=== PATIENT | female | born 1990 | race Hispanic/Latino ===

== ENCOUNTER 2019-03-20 05:08 | Inpatient (IN) | payer OTHER, SELFPAY ==
[2019-03-20] MEDS ORDERED: CARBOPROST TROME 250 MCG/ML IM PRN (05:10)
[2019-03-20] MEDS ORDERED: BUTORPHANOL 1 MG/ML INJ IV PRN (05:10)
[2019-03-20] MEDS ORDERED: PROMETHAZINE 25 MG/ML VIAL IM PRN (05:10)
[2019-03-20] MEDS ORDERED: MEPERIDINE HCL 25 MG/0.5 ML IV PRN (05:10)
[2019-03-20] MEDS ORDERED: MIDAZOLAM HCL 2 MG/2 ML INJ IV PRN (05:10)
[2019-03-20] MEDS ORDERED: METHYLERGONOVINE 0.2MG/ML AMP IM PRN (05:10)
[2019-03-20] MEDS ORDERED: Ringers Lactate 1,000 ML IV PRN (05:10)
--- OUTSIDE RECORDS SUMMARY | 2019-03-20 05:11 | XMS REPORT ---
:1990 [facility] [address] [place] [address] Dr. Lundberg [address] [place] [id number] Care Team Providers Name Role Phone Unavailable Unavailable Unavailable Problems This patient has no known problems. Allergies, Adverse Reactions, Alerts This patient has no known allergies or adverse reactions. Medications This patient has no known medications.
[2019-03-20] MEDS ORDERED: LIDOCAINE 1% MPF 30 ML VIAL SQ ONE (05:13)
[2019-03-20] MEDS ORDERED: OXYTOCIN 10 UNIT/ML ML IV ONE (05:31)
[2019-03-20] MEDS ORDERED: Ringers Lactate 1,000 ML IV SCH (06:00)
[2019-03-20] MEDS ORDERED: OXYTOCIN/LR 20 UNIT/1,000 ML BAG IV SCH ×2 (06:00→12:00)
[2019-03-20 06:06] VITALS: BMI 23.7
[2019-03-20 06:17] LABS: Absolute Lymphocytes (CBC) 2.9 K/uL (0.7-4.9); Basophils % 0.6 % (0-1.3); Hematocrit 36.4 % (36.0-45.0); MPV 10.3 fL (7.6-11.3); RBC Red Blood Cell Count 4.23 M/uL (3.86-4.86)
[2019-03-20] MEDS ORDERED: FENTANYL CITR 100 MCG/2 ML IV ONE (07:15)
[2019-03-20] MEDS ORDERED: BUPIVACAINE 0.25% PF 10 ML VIAL IV ONE (07:17)
[2019-03-20] MEDS ORDERED: FENTANYL/BUPIVACAINE/NS/PF 200 MCG/100 ML BAG EP ONE (07:17)
--- NOTE | 2019-03-20 11:46 | OP ---
Surgeon: Figueroa Kim MD This is a 28-year-old 3, para 1, 35 weeks 6 days, came in with spontaneous rupture of membran es, and active labor, 4 cm on admission. Requested and received epidural anesthesia at about 8-9 cm. Second stage of about 20-25 minutes. Spontaneous vaginal delivery of an estimated 5 pound male inf ant, Apgars 3, 5, 8. 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 Was initially very sluggish but then did respond to bagging with ox ygen. Schultze delivery of the placenta. Estimated blood loss 300 mL or less. Penicillin prophylax is given x1 as the patient was less than 37 weeks, although beta strep test was negative. Patient to lerated all procedures well. Final Diagnoses: Intrauterine gestation, 35 weeks 6 days, premature rupture of membranes, vaginal de livery, epidural anesthesia. Baby with multiple external deformities. Pediatrics of course will be notified for a complete evaluation. DOUG/KRYS Voice ID: [id number] Report ID: [id number]
--- NOTE | 2019-03-20 11:46 | PREOPHP ---
Date of Admission: 03/20/2019 Katherine Ray is a 28-year-old, 3, para 1, 35 weeks 6 days. Rh positive, immu ne to Rubella, negative beta strep screen. Patient is under 37 weeks. Came in with spontaneous rupt ure of membranes and active labor. Patient is now 5-6, 100% effaced, 0 station. Luis A every m inute. She is requesting epidural. She is being hydrated. Her CBC is back and is normal remains to be same. She knows because she has a male infant he may have trouble after de livery with his lungs, but that remains to be same. Full admission and labor talk given. DOUG/KRYS Voice ID: [id number]
[2019-03-20] MEDS ORDERED: Oxycodone HCl/Acetaminophen 1 TAB TAB PO PRN ×2 (11:52)
[2019-03-20] MEDS ORDERED: IBUPROFEN 200 MG TAB PO PRN (11:52)
[2019-03-20] MEDS ORDERED: BISACODYL 10 MG RECTAL SUPP RECT PRN (11:52)
[2019-03-20] MEDS ORDERED: ACETAMINOPHEN 500 MG TAB PO PRN (11:52)
[2019-03-20] MEDS ORDERED: DOCUSATE NA/SENNA CONC 1 TAB PO PRN (11:52)
[2019-03-20] MEDS ORDERED: DIPHENHYDRAMINE 25 MG TAB/CAP PO PRN (11:52)
[2019-03-20 21:01] LABS: RPR (Rapid Plasma Reagin) NON-REACT (NON-REACT)
[2019-03-21 07:55] VITALS: BP 118/72; TEMP 97.2
--- NOTE | 2019-03-22 08:27 | DS ---
Date of Discharge: 03/21/2019 A 28-year-old 3, para 1, 35 weeks 6 days, experienced spontaneous rupture of membranes, came in in active labor. Went fairly rapidly to complete. Short second stage. Spontaneous vaginal deliv gema of an estimated 5 pound plus male infant. Apgars 3, 5, and 8. Baby had extra toes, hypospadias, malformed left ear, initially cried, but then went into secondary apnea, but resuscitation brought a bout good response. No episiotomy, no laceration. Schultze delivery of the placenta. Less than 300 mL blood loss. Penicillin prophylaxis had been given as patient was less than 37 weeks, but had a n egative beta strep screen. Baby was transferred to tertiary care center and is doing quite well at t his point. Whether or not the baby has a syndrome or just superficial defects remains to be se en. Patient has had her Tdap shot during the . Dismissed with tramadol for analgesia, alth ough she may elect to take Motrin instead. Final Diagnoses: Intrauterine gestation, 35 weeks 6 days, spontaneous rupture of membranes, prematur e labor and delivery. Baby with multiple defects. Penicillin prophylaxis. NBC/MODL Voice ID: [id number] Report ID: [id number]
[2019-03-22 19:16] LABS: HBsAG Nonreactive (Nonreactive)
== END 2019-03-21 08:40 | disposition home or self-care (01) | DRG 807 ==
LOC: 2ND-WC 05:08
PROVIDERS: ADMIT Specialist; ATTEND Specialist
PROC: 10E0XZZ Delivery of Products of Conception, External Approach (ICD-10-PCS; principal; 2019-03-20)
DX: O60.14X0 Preterm labor third trimester with preterm delivery third trimester, not applicable or unspecified (principal); Z37.0 Single live birth; Z3A.35 35 weeks gestation of pregnancy
CPT/HCPCS: 36415; 85025; 86592; 86850; 86900; 86901; 87340; 88307; J2210; J2590; J3010

== ENCOUNTER 2022-07-10 08:59 | Inpatient (IN) | payer OTHER ==
--- NOTE | 2022-07-10 11:16 | RAD REPORT ---
EXAM DESCRIPTION: US - OB Limited - 07/10/2022 9:46 am CLINICAL HISTORY: [place] check age. COMPARISON: OB Limited dated 07/07/2022 FINDINGS: A single cephalic presenting gestation is identified. Heart rate normal. The amniotic fluid index is 5.0 cm, with largest pocket 2.5 cm. IMPRESSION: Amniotic fluid index is5.0 cm, with largest pocket2.5 cm -- considered oligohydramnios..
--- OUTSIDE RECORDS SUMMARY | 2022-07-10 11:37 | XMS REPORT | Continuity of Care Document ---
:1990 Author Organization [facility] Address [address] [place] [address] Dr. Lundberg [address] [place] [address] Care Team Providers Name Role Phone Unavailable Unavailable Unavailable Problems This patient has no known problems. Allergies, Adverse Reactions, Alerts This patient has no known allergies or adverse reactions. Medications This patient has no known medications. Procedures This patient has no known procedures. Results This patient has no known results.
[2022-07-10] MEDS ORDERED: CARBOPROST TROME 250 MCG/ML IM PRN ×2 (11:41→19:03)
[2022-07-10] MEDS ORDERED: BUTORPHANOL 1 MG/ML INJ IV PRN (11:41)
[2022-07-10] MEDS ORDERED: PROMETHAZINE INJ 25 MG/ML AMP IM PRN (11:41)
[2022-07-10] MEDS ORDERED: Ringers Lactate 1,000 ML IV PRN (11:41)
[2022-07-10] MEDS ORDERED: METHYLERGONOVINE 0.2MG/ML AMP IM PRN (11:41)
[2022-07-10] MEDS ORDERED: OXYTOCIN/LR 20 UNIT/1,000 ML BAG IV SCH ×3 (12:00→20:00)
[2022-07-10] MEDS ORDERED: Ringers Lactate 1,000 ML IV SCH (12:00)
[2022-07-10 12:17] LABS: Hematocrit 39.2 % (36.0-45.0); Lymphocytes % 18.4 % (15.3-44.8); MCV 85.7 fL (80-100); RBC Red Blood Cell Count 4.58 M/uL (3.86-4.86)
[2022-07-10 12:21] LABS: Specific Gravity 1.013 (1.005-1.030); Urine Bilirubin NEGATIVE (Negative); Urine Blood Negative (Negative); Urine Clarity Clear (Clear); Urine Color Yellow (Yellow); Urine Glucose NEGATIVE (Negative); Urine Protein NEGATIVE (Negative); Urine Urobilinogen Normal (Normal); Urine pH 6.5 (5.0-7.0)
[2022-07-10] MEDS ORDERED: FENTANYL CITR 100 MCG/2 ML IV ONE (15:41)
[2022-07-10] MEDS ORDERED: 0.2% ROPIVACAINE (200 MG/100 ML) BAG EP ONE (15:42)
[2022-07-10] MEDS ORDERED: FENTANYL CITR 100 MCG/2 ML ONE (15:56)
[2022-07-10] MEDS ORDERED: ROPIVACAINE HCL 100 ML EP ONE (15:56)
[2022-07-10] MEDS ORDERED: ROPIVACAINE HCL 0 ML ONE (15:57)
[2022-07-10 16:23] VITALS: BMI 24.7
[2022-07-10] MEDS ORDERED: LIDOCAINE 1% MPF 30 ML VIAL ONE (17:14)
[2022-07-10 19:48] LABS: RPR (Rapid Plasma Reagin) REACTIVE (NON-REACT)
[2022-07-10] MEDS: Oxycodone HCl/Acetaminophen 1 TAB TAB PO PRN (22:24)
[2022-07-11] MEDS: IBUPROFEN 200 MG TAB PO PRN (01:35)
--- NOTE | 2022-07-11 02:39 | DN ---
Date of Procedure: 07/10/2022 Surgeon: Jarocho Crane Final Diagnoses: 1.Intrauterine at 38 weeks and 1 day of gestation, delivered. 2.Oligohydramnios. 3.Normal vaginal delivery. 4.Single live . Hospital Course: Katherine Chavira is admitted in the hospital as a G4, P2 at 38 weeks and 1 day gesta tion with diagnosis of oligohydramnios. Lengthy bedside discussion on planning of induction of labor involving artificial rupture of membranes and Pitocin usage were all discussed at the bedside and pablo arizmendi understood. She underwent artificial rupture of membranes at 12:40 p.m. showing clear fluid. The cervix was about 2-3 cm dilated, 25% effaced, -2 station. Pitocin was given and Pitocin was titr ated to regular contractions about every 3 minutes apart. She received epidural regional anesthesia and she was comfortable. Her labor progressed. Stable maternal unit. She reached complete ce rvical dilation during the afternoon and during the second stage of labor, her legs were placed up on the stirrups and vaginal area prepped and washed by using diluted Betadine prep. Then she was drape d in sterile fashion. Baby is about +1 station with maternal pushes. The baby's head was able to de scend and finally control was counter traction on the perineum. The baby's nose and mouth were bulb suctioned followed by reduction of a tight nuchal cord overhead. The left shoulder delivered. Baby presented CHATO. After the anterior shoulder delivery, followed by the posterior shoulder, body delive ry finally completed. The baby's nose and mouth suctioned again, followed by clamping of the cord an d cut and baby passed on to the nursing staff. Cord blood obtained. Placenta delivered manually in Schultze presentation. There was no episiotomy. There were no tears and aggressive fundal massage w as done. Excess blood clots were cleaned out. Estimated blood loss was 200 cc. She gave to a female baby, scores 7 and 9 and weight 7 pounds 1 ounce. Delivery time was 5:25 p.m. Sponge c ounts were correct. BW/MODL Voice ID: [id number] Report ID: [id number]
[2022-07-11] MEDS: Oxycodone HCl/Acetaminophen 1 TAB TAB PO PRN ×3 (07:05→19:09)
--- NOTE | 2022-07-11 13:29 | DS ---
Date of Discharge: 07/11/2022 Discharge Diagnoses: 1.Intrauterine , 38 weeks and 1 day of gestation, delivered. 2.Normal vaginal delivery. 3.Oligohydramnios. 4.Single live . Disposition: Home. Condition: Stable. Prescriptions: 1.Tylenol No. 3 #20 one to two tablets p.o. q.4 to 6 hours p.r.n. for pain with 1 refill. 2.Ibuprofen 800 mg #20 one tablet p.o. t.i.d. with food p.r.n. for pain. Followup: Contact Dr. Kim in 4 to 6 weeks followup. Hospital Course: Katherine is a multiparous female with amniotic fluid index has decreasing th roughout the past weeks. She finally reached oligohydramnios level, therefore, induction of labor wa s done for reasons. She underwent an artificial rupture of membrane, Pitocin infusion, and her labor progressed without any difficulties. She gave to a female baby with scores of 7 a nd 9. Weight 7 pounds 1 ounce. Her care was uneventful and unremarkable. The next day, her uterus was firm, vaginal lochia was minimum, and she was discharged to home. Bedside education c onducted. The patient understood the care issues. Her GBS status was negative. Maternal blood type is O positive with rubella immune. BW/MODL Voice ID: [id number] Report ID: [id number]
[2022-07-11] MEDS ORDERED: PROMETHAZINE INJ 25 MG/ML AMP IM ONE (18:42)
[2022-07-11] MEDS ORDERED: MEPERIDINE HCL 25 MG/ML SYR IM ONE (18:42)
[2022-07-12] MEDS: Oxycodone HCl/Acetaminophen 1 TAB TAB PO PRN (00:47)
[2022-07-12 05:21] VITALS: TEMP 97.7
[2022-07-12] MEDS ORDERED: IBUPROFEN 600 MG TAB ONE (09:04)
[2022-07-12] MEDS: IBUPROFEN 200 MG TAB PO PRN (11:06)
[2022-07-12 11:38] VITALS: BP 107/73
--- NOTE | 2022-07-12 19:07 | DS ---
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 Confirmation of FTA testing was not available yet and the results will not be ready in few days. However, the commercial sheet metal foreman was notified and I also conducted patient education at the bedside. The patient has no knowledge of any syphilis or anything related to a rash, infecti on, or any sexually transmitted infections. The patient denies any prior history. I educated the pablo arizmendi and told her that this could be a false alarm and we need to wait for an official confirmation test. The commercial sheet metal foreman had decided to treat the baby with penicillin because of the need for further observation and examination of the baby. Mom stayed with the baby in the hospital until this mornin g. Discharge to resume with the previously mentioned instructions. However, the pattern of 3 prescr iption was canceled. I gave her a new prescription of ibuprofen 800 mg #20, 1 tab p.o. t.i.d. p.r.n. for pain with 1 refill. JUAN/KRYS Voice ID: [id number] Report ID: [id number]
== END 2022-07-12 12:15 | disposition home or self-care (01) | DRG 806 ==
LOC: L&D 08:59 → 2ND-WC 11:34
PROVIDERS: ADMIT Obstetrics & Gynecology; ATTEND Obstetrics & Gynecology
PROC: 10E0XZZ Delivery of Products of Conception, External Approach (ICD-10-PCS; principal; 2022-07-10)
PROC: 10907ZC Drainage of Amniotic Fluid, Therapeutic from Products of Conception, Via Natural or Artificial Opening (ICD-10-PCS; 2022-07-10)
PROC: 3E033VJ Introduction of Other Hormone into Peripheral Vein, Percutaneous Approach (ICD-10-PCS; 2022-07-10)
DX: O41.03X0 Oligohydramnios, third trimester, not applicable or unspecified (principal); O98.12 Syphilis complicating childbirth; Z37.0 Single live birth; O69.81X0 Labor and delivery complicated by cord around neck, without compression, not applicable or unspecified; Z3A.38 38 weeks gestation of pregnancy; A53.9 Syphilis, unspecified
CPT/HCPCS: 36415; 76815; 81003; 85025; 86592; 86593; 86780; 86901; 87340; 99218; J2001; J2210; J2590; J2795; J3010; J7120